=== PATIENT | male | born 1980 | race Caucasian/White ===

== ENCOUNTER 2018-05-22 15:11 | Emergency (ER) | payer BC, OTHER ==
[2018-05-22 16:14] LABS: Arterial Blood Carboxyhemoglob 0.9 % (0-1.5)
[2018-05-22] MEDS ORDERED: ALBUTEROL 2.5 MG/3 ML NEB SOL ONE (16:25)
[2018-05-22 16:40] LABS: Absolute Lymphocytes (CBC) 2.4 K/uL (0.7-4.9); Absolute Monocytes 0.6 K/uL (0.1-1.3); Absolute Neutrophil 4.4 K/uL (1.8-8.0); Basophils % 0.6 % (0-1.3); Eosinophils % 2.2 % (0-4.4); Hematocrit 41.8 % (39.6-49.0); Lymphocytes % 31.4 % (15.3-44.8); MCH 31.4 pg (27.0-35.0); MCV 88.4 fL (80-100); MPV 7.7 fL (7.6-11.3); Monocytes % 8.4 % (3.3-12.3); RBC Red Blood Cell Count 4.73 M/uL (4.33-5.43)
--- NOTE | 2018-05-22 17:12 | RAD REPORT ---
EXAM DESCRIPTION: RAD - Chest Pa And Lat (2 Views) - 05/22/2018 4:10 pm CLINICAL HISTORY: Clinical exposure common inhalation injury COMPARISON: March 2015 TECHNIQUE: PA and lateral views of the chest were obtained. FINDINGS: The lungs are clear of pulmonary edema, infiltrate or acute lung parenchymal finding. Lung markings are similar to comparison. Heart size is normal and central vasculature is within normal limits. No pleural effusion or pneumothorax seen. No acute bony finding noted. No aortic abnormali ty. IMPRESSION: No acute cardiopulmonary process.
[2018-05-22 18:07] LABS: Albumin 3.8 g/dL (3.4-5.0); Bilirubin Total 0.3 mg/dL (0.2-1.0); Potassium 3.9 mmol/L (3.5-5.1); Protein, Total 7.5 g/dL (6.4-8.2)
--- NOTE | 2018-05-22 18:30 | ER ---
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 Patient denies pain, denies shortness of breath. States that his mouth feels dry and his throat feels scratchy. Transition of care: patient was not received from another setting of care. Onset of symptoms was May 22, 2018 at 12:30. Risk Assessment: Do you want to hurt yourself or someone else? Patient reports no desire to harm self or others. Initial Sepsis Screen: Does the patient meet any 2 criteria? No. Patient's initial sepsis screen is negative. Does the patient have a suspected source of infection? No. Patient's initial sepsis screen is negative. Care prior to arrival: None. 15:31 Method Of Arrival: Ambulatory [facility] 15:31 Acuity: RL 3 aj1 Triage Assessment: 15:35 General: Appears in no apparent distress. comfortable, Behavior is calm, cooperative, aj1 appropriate for age. Pain: Denies pain. EENT: Throat is clear bilaterally Reports dry mouth, throat feels scratchy . Neuro: Level of Consciousness is awake, alert, obeys commands. Cardiovascular: Patient's skin is warm and dry. Respiratory: Airway is patent Respiratory effort is even, unlabored, Respiratory pattern is Denies shortness of breath. Historical: - Allergies: 15:35 Keflex; aj1 15:35 Bactrim; aj1 15:35 Sulfa (Sulfonamide Antibiotics); aj1 - Home Meds: 15:35 topiramate oral oral [Active]; Alprazolam Oral [Active]; Amitriptyline Oral [Active]; aj1 - PMHx: 15:35 concussion; Migraines; aj1 - Immunization history:: Flu vaccine is up to date. - Social history:: Smoking status: Patient/guardian denies using tobacco. - Ebola Screening: : Patient denies travel to an Ebola-affected area in the 21 days before illness onset. Screenin:40 Abuse screen: Denies threats or abuse. Nutritional screening: No deficits noted. rb1 Tuberculosis screening: No symptoms or risk factors identified. Fall Risk None identified. Assessment: 15:40 General: Appears in no apparent distress. comfortable, Behavior is calm, cooperative. rb1 Neuro: Level of Consciousness is awake, alert, obeys commands, Oriented to person, place, time, situation. Cardiovascular: Capillary refill < 3 seconds is brisk in bilateral fingers. Respiratory: Airway is patent Respiratory effort is even, unlabored, Respiratory pattern is regular, symmetrical. : No signs and/or symptoms were reported regarding the genitourinary system. Derm: Skin is pink, warm \T\ dry. 15:47 Reassessment: Poison control contacted. Recommendations: Formaldehyde is a possible [facility] respiratory irritate. If shortness of breath develops give breathing treatment such as albuterol, systemic corticosteroids and symptomatic care. CBC. CMP, ABG should be drawn as well if symptoms develop. Observation time should be for at least 4 hours. 16:40 Reassessment: Patient appears in no apparent distress at this time. Patient and/or rb1 family updated on plan of care and expected duration. Pain level reassessed. Patient is alert, oriented x 3, equal unlabored respirations, skin warm/dry/pink. 17:36 Reassessment: Patient appears in no apparent distress at this time. No changes from rb1 previously documented assessment. Friends at bedside. 18:30 Reassessment: Patient appears in no apparent distress at this time. Patient and/or rb1 family updated on plan of care and expected duration. Pain level reassessed. Patient is alert, oriented x 3, equal unlabored respirations, skin warm/dry/pink. Vital Signs: 15:35 BP 152 / 91; Pulse 92; Resp 18; Temp 98.3(TE); Pulse Ox 97% on R/A; Weight 95.25 kg aj1 (R); Height 5 ft. 10 in. (177.80 cm) (R); Pain 0/10; 16:30 BP 126 / 96; Pulse 83; Resp 17; Pulse Ox 100% ; rb1 17:30 BP 136 / 83; Pulse 86; Resp 18; Pulse Ox 100% on R/A; rb1 18:30 BP 135 / 92; Pulse 84; Resp 17; Pulse Ox 99% ; rb1 15:35 Body Mass Index 30.13 (95.25 kg, 177.80 cm) aj1 ED Course: 15:12 Patient arrived in ED. as 15:33 Triage completed. aj1 15:35 Arm band placed on Patient placed in an exam room. aj1 15:40 Patient has correct armband on for positive identification. Placed in gown. Bed in low rb1 position. Call light in reach. Side rails up X 1. Pulse ox on. NIBP on. 15:41 Konrad Price PA is PHCP. cp 15:41 Burke Rivera MD is Attending Physician. cp 16:07 Rebekah Huntley, RN is Primary Nurse. rb1 16:09 XRAY Chest Pa And Lat (2 Views) In Process Unspecified. EDMS 16:30 Inserted saline lock: 22 gauge in left antecubital area, using aseptic technique. Blood rb1 collected. 18:54 No provider procedures requiring assistance completed. IV discontinued, intact, rb1 bleeding controlled, No redness/swelling at site. Pressure dressing applied. Administered Medications: 16:20 Drug: Albuterol 2.5 mg Route: Inhalation; rb1 Outcome: 18:29 Discharge ordered by MD. cp 18:54 Discharged to home ambulatory, with friend. rb1 18:54 Condition: stable 18:54 Discharge instructions given to patient, Instructed on discharge instructions, follow up and referral plans. medication usage, Demonstrated understanding of instructions, follow-up care, medications, Prescriptions given X 1. 18:57 Patient left the ED. rb1 Signatures: Dispatcher [employer] EDNV Nancy Mcclain RN RN aj1 Nedra Bryant as Konrad Price PA PA cp Rebekah Huntley, RN RN rb1
--- NOTE | 2018-05-22 18:30 | EDPHYS ---
Physician Documentation [facility] Name: Christopher Taylor Age: 37 yrs Sex: Male : 1980 Arrival Date: 05/22/2018 Time: 15:12 Bed 16 Private MD: ED Physician Burke Rivera HPI: 05/22 15:45 This 37 yrs old Male presents to ER via Ambulatory with complaints of cp Exposure to Formaldehyde. 15:45 The patient presents to the emergency department with a known poisoning, as a result of cp a work exposure, aerosolized Formaldehyde. 15:45 Associated signs and symptoms: Pertinent positives: dry mouth and scratchy throat, cp Pertinent negatives: burning of skin, shortness of breath, chest pain. 15:45 Severity of symptoms: in the emergency department the symptoms are unchanged. Patient cp reports exposure occurred today about 1200 to 1230. Historical: - Allergies: 15:35 Keflex; aj1 15:35 Bactrim; aj1 15:35 Sulfa (Sulfonamide Antibiotics); aj1 - Home Meds: 15:35 topiramate oral oral [Active]; Alprazolam Oral [Active]; Amitriptyline Oral [Active]; aj1 - PMHx: 15:35 concussion; Migraines; aj1 - Immunization history:: Flu vaccine is up to date. - Social history:: Smoking status: Patient/guardian denies using tobacco. - Ebola Screening: : Patient denies travel to an Ebola-affected area in the 21 days before illness onset. ROS: 15:50 All other systems are negative. cp Exam: 15:55 Constitutional: The patient appears in no acute distress, alert, awake, cp non-diaphoretic, non-toxic, well developed, well nourished. 15:55 Head/Face: Normocephalic, atraumatic. cp 15:55 Eyes: Pupils equal round and reactive to light, extra-ocular motions intact. Lids and lashes normal. Conjunctiva and sclera are non-icteric and not injected. Cornea within normal limits. Periorbital areas with no swelling, redness, or edema. ENT: Nares patent. No nasal discharge, no septal abnormalities noted. Tympanic membranes are normal and external auditory canals are clear. Oropharynx with no redness, swelling, or masses, exudates, or evidence of obstruction, uvula midline. Mucous membranes moist. 15:55 Neck: External neck: is normal, ROM/movement: is normal, is supple, without pain, no range of motions limitations, no nuchal rigidity. 15:55 Chest/axilla: Inspection: normal, Palpation: is normal, no crepitus, no tenderness. 15:55 Cardiovascular: Rate: normal, Rhythm: regular, Heart sounds: murmur, not appreciated, rub, not appreciated, gallop, not appreciated, Edema: is not appreciated. 15:55 Respiratory: the patient does not display signs of respiratory distress, Respirations: normal, no use of accessory muscles, no retractions, no splinting, no tachypnea, labored breathing, is not present, Breath sounds: are clear throughout, no decreased breath sounds, no stridor, no wheezing. 15:55 Abdomen/GI: Inspection: abdomen appears normal, Bowel sounds: active, all quadrants, Palpation: abdomen is soft and non-tender, in all quadrants, rebound tenderness, is not appreciated, voluntary guarding, is not appreciated, involuntary guarding, is not appreciated. 15:55 Back: pain, is absent, ROM is normal. 16:55 ECG was reviewed by the Attending Physician. cp Vital Signs: 15:35 BP 152 / 91; Pulse 92; Resp 18; Temp 98.3(TE); Pulse Ox 97% on R/A; Weight 95.25 kg aj1 (R); Height 5 ft. 10 in. (177.80 cm) (R); Pain 0/10; 16:30 BP 126 / 96; Pulse 83; Resp 17; Pulse Ox 100% ; rb1 17:30 BP 136 / 83; Pulse 86; Resp 18; Pulse Ox 100% on R/A; rb1 18:30 BP 135 / 92; Pulse 84; Resp 17; Pulse Ox 99% ; rb1 15:35 Body Mass Index 30.13 (95.25 kg, 177.80 cm) aj1 MDM: 15:41 Patient medically screened. cp 18:25 Data reviewed: vital signs, nurses notes, lab test result(s), EKG, radiologic studies, cp plain films. 18:25 Test interpretation: by ED physician or midlevel provider: ECG, plain radiologic cp studies. 05/22 15:52 Order name: CBC with Diff; Complete Time: 17:55 cp 05/22 15:52 Order name: CMP; Complete Time: 18:12 cp 05/22 18:12 Interpretation: Normal except: GFR 62; CA 8.1; GLOB 3.7; A/G 1.0. cp 05/22 15:52 Order name: XRAY Chest Pa And Lat (2 Views); Complete Time: 17:55 cp 05/22 17:56 Interpretation: Report reviewed. cp 08 15:52 Order name: ABG; Complete Time: 17:55 cp 05/22 17:55 Interpretation: Normal except: ABGPO2 71.1; ABGHCO3 21.7; VRBC1BZ 93.0. cp 08 15:52 Order name: EKG; Complete Time: 15:52 cp 05/22 15:52 Order name: EKG - Nurse/Tech; Complete Time: 16:59 cp 05/22 16:09 Order name: Oxygen: 2 liter NC; Complete Time: 16:59 cp 05/22 17:12 Order name: Labs - recollect needed; Complete Time: 18:55 eb EC:55 Rate is 87 beats/min. Rhythm is regular. ND interval is normal. QRS interval is normal. cp QT interval is normal. Interpreted by me. Reviewed by me. Administered Medications: 16:20 Drug: Albuterol 2.5 mg Route: Inhalation; rb1 Disposition: 19:00 Chart complete. Disposition: 05/22/18 18:29 Discharged to Home. Impression: Contact with and (suspected) exposure to other hazardous, chiefly nonmedicinal, chemicals. - Condition is Stable. - Discharge Instructions: Chemical Inhalation Injury, Adult. - Prescriptions for Albuterol Sulfate 90 mcg/actuation - inhale 1-2 puff by INHALATION route every 4-6 hours; 1 Inhaler. - Medication Reconciliation Form, Thank You Letter, Antibiotic Education, Prescription Opioid Use form. - Follow up: Private Physician; When: 1 - 2 days; Reason: Recheck today's complaints. - Problem is new. - Symptoms have improved. Addendum: 05/31/2018 08:25 Co-signature as Attending Physician, Burke Rivera MD. r n Signatures: Dispatcher [employer] EDNancy Lipscomb RN RN aj1 Burke Rivera MD MD rn Konrad Price PA PA cp Rebekah Huntley RN RN rb1 Ekta Bowser Corrections: (The following items were deleted from the chart) 05/22 18:12 18:12 Normal except: GFR 62. cp cp 18:57 18:29 05/22/2018 18:29 Discharged to Home. Impression: Contact with and (suspected) rb1 exposure to other hazardous, chiefly nonmedicinal, chemicals. Condition is Stable. Forms are Medication Reconciliation Form, Thank You Letter, Antibiotic Education, Prescription Opioid Use. Follow up: Private Physician; When: 1 - 2 days; Reason: Recheck today's complaints. Problem is new. Symptoms have improved. cp
--- NOTE | 2018-05-23 05:42 | EKG ---
Test Date: 2018-05-22 Test Time: 16:46:55 Video Tape Duplicator: MARI MEASUREMENT RESULTS: Intervals: Rate: 87 KS: 162 QRSD: 98 QT: 364 QTc: 438 [place]: P: 46 KS: 162 QRS: 1 T: 15 INTERPRETIVE STATEMENTS: Normal sinus rhythm Normal ECG Compared to ECG 03/11/2015 09:59:11 No significant changes Electronically Signed On 05-23-18 05:40:47 CDT by Fede Medina
== END 2018-05-22 18:57 | disposition home or self-care (01) ==
LOC: ER 15:11
DX: R07.0 Pain in throat (principal); Z77.098 Contact with and (suspected) exposure to other hazardous, chiefly nonmedicinal, chemicals; Z88.1 Allergy status to other antibiotic agents; Z88.2 Allergy status to sulfonamides
CPT/HCPCS: 36415; 71046; 80053; 82805; 85025; 93005; 99284